=== PATIENT | female | born 1940 | race Caucasian/White ===

== ENCOUNTER 2019-02-28 13:51 | Inpatient (IN) ==
[2019-02-28] MEDS ORDERED: Naloxone 0.4 MG/ML INJ IVP PRN (16:18)
[2019-02-28] MEDS: Insulin LISPRO 300 UNITS/3 ML VIAL SQ SCH (19:24)
[2019-02-28] MEDS ORDERED: 0.9 % Sodium Chloride 250 ML ONE (20:40)
[2019-02-28] MEDS ORDERED: Acetaminophen IV 500 MG/50 ML INFUS..BTL IVPB ONE (21:08)
[2019-02-28] MEDS ORDERED: Haloperidol Lactate 5 MG/ML VIAL IVP ONE (22:03)
[2019-02-28] MEDS ORDERED: *HR* Promethazine 25 MG/ML VIAL IVP ONE (22:03)
[2019-03-01] MEDS: Insulin LISPRO 300 UNITS/3 ML VIAL SQ SCH ×4 (00:11→17:41)
[2019-03-01] MEDS ORDERED: D5% in Water 1,000 ML IVC PRN (06:31)
[2019-03-01] MEDS ORDERED: Dextrose Gel 15 GM/37.5 ML TUBE PO PRN ×2 (06:31)
[2019-03-01 06:39] LABS: Albumin 3.2 g/dL (3.5-5.7); Albumin/Globulin Ratio 1.1 (1.1-2.2); Bilirubin,Total 0.3 mg/dL (0.3-1.0); Calcium 8.7 mg/dL (8.6-10.3); Magnesium 2.2 mg/dL (1.6-2.6); Phosphorous 7.3 mg/dL (2.7-4.5); Potassium 4.9 mEq/L (3.5-5.1); Total Protein 6.2 g/dL (6.4-8.9)
[2019-03-01] MEDS: *HR* Dextrose 50 % in Water (Syg) 50 ML SYRINGE IVP PRN ×2 (06:50→13:06)
[2019-03-01 08:35] LABS: Estimated Average Glucose 114 mg/dl
[2019-03-01] MEDS: cefTRIAXone 1,000 MG in Water for inj. (sterile) 10 ML IVP SCH (09:12)
[2019-03-01] MEDS: Furosemide 20 MG/2 ML VIAL IVP PRN ×2 (09:26→15:48)
[2019-03-01] MEDS ORDERED: 0.9 % Sodium Chloride 250 ML ONE (11:27)
[2019-03-01] MEDS: Levothyroxine Sodium 100 MCG VIAL IVP SCH (13:05)
[2019-03-01] MEDS ORDERED: D5% in 0.9% NACL 1,000 ML IVC SCH (14:00)
[2019-03-01] MEDS ORDERED: 0.9 % Sodium Chloride 250 ML IVC PRN (14:51)
[2019-03-01] MEDS ORDERED: 0.9 % Sodium Chloride 1,000 ML PRIME SCH (15:00)
[2019-03-01 16:48] LABS: Hematocrit 33.6 % (35.3-44.9); Hemoglobin 11.1 g/dL (11.5-15.4)
[2019-03-01 17:28] LABS: Hepatitis B Surface Antibody < 3.10 mIU/mL
[2019-03-01 17:39] LABS: Hepatitis B Surface Antigen Nonreactive (Nonreactive)
[2019-03-01] MEDS ORDERED: *HR* Labetalol 20 MG/4 ML SYRINGE IVP ONE (19:55)
[2019-03-02] MEDS: Insulin LISPRO 300 UNITS/3 ML VIAL SQ SCH ×5 (00:29→22:53)
[2019-03-02 05:05] LABS: Basophils # 0.1 K/mcL (0.0-0.2); Basophils % 0.6 %; Eosinophils % 0.5 %; Hematocrit 29.6 % (35.3-44.9); Hemoglobin 9.4 g/dL (11.5-15.4); Immature Granulocytes % 0.3 % (0-4); Lymphocytes % 12.3 %; Mean Corpuscular HGB Conc 31.8 g/dL (31.6-35.5); Mean Corpuscular Hemoglobin 29.7 pg (28.0-33.3); Mean Corpuscular Volume 93.7 fL (83.0-100.0); Mean Platelet Volume 8.7 fL (9.4-12.4); Monocytes # 0.9 K/mcL (0.0-1.3); Monocytes % 11.5 %; Platelet Count 184 K/mcL (140-400); Red Blood Count 3.16 M/mcL (3.82-4.97); Red Cell Distribution Width 17.1 % (11.5-14.5); Segmented Neutrophils % 74.8 %
[2019-03-02 05:22] LABS: Calcium 8.5 mg/dL (8.6-10.3); Potassium 4.3 mEq/L (3.5-5.1)
[2019-03-02] MEDS ORDERED: 0.9 % Sodium Chloride 250 ML IVC PRN (09:18)
[2019-03-02] MEDS ORDERED: *HR* Heparin 10,000 UNIT/10 ML VIAL IV PRN (09:18)
[2019-03-02] MEDS: Levothyroxine Sodium 100 MCG VIAL IVP SCH (09:24)
[2019-03-02] MEDS: cefTRIAXone 1,000 MG in Water for inj. (sterile) 10 ML IVP SCH (09:24)
[2019-03-02] MEDS: *HR* OxyCODONE Oral Soln 5 MG/5 ML UD.LIQ PO PRN ×2 (12:07→19:23)
[2019-03-02] MEDS ORDERED: Heparin 1,000 UNITS/500 mL 500 ML ONE (13:04)
[2019-03-02] MEDS ORDERED: 0.9 % Sodium Chloride 500 ML ONE (13:04)
[2019-03-02] MEDS: NIFEdipine XL (24 HR) 30 MG TAB.ER.24 PO SCH (14:00)
[2019-03-02] MEDS ORDERED: *HR* Heparin 5,000 UNIT/ML VIAL ONE (15:00)
[2019-03-02] MEDS ORDERED: Haloperidol Lactate 5 MG/ML VIAL IVP ONE (19:59)
[2019-03-02] MEDS ORDERED: traZODone 50 MG TABLET PO SCH (21:00)
[2019-03-03] MEDS: Insulin LISPRO 300 UNITS/3 ML VIAL SQ SCH ×4 (06:02→23:55)
[2019-03-03 06:27] LABS: Basophils # 0.1 K/mcL (0.0-0.2); Basophils % 0.5 %; Eosinophils % 0.2 %; Hematocrit 29.1 % (35.3-44.9); Hemoglobin 9.6 g/dL (11.5-15.4); Immature Granulocytes % 0.3 % (0-4); Lymphocytes # 0.9 K/mcL (0.6-4.6); Lymphocytes % 9.4 %; Mean Corpuscular Hemoglobin 30.1 pg (28.0-33.3); Mean Corpuscular Volume 91.2 fL (83.0-100.0); Mean Platelet Volume 9.1 fL (9.4-12.4); Monocytes % 10.2 %; Neutrophils # 7.7 K/mcL (1.6-8.9); Platelet Count 200 K/mcL (140-400); Red Blood Count 3.19 M/mcL (3.82-4.97); Red Cell Distribution Width 16.6 % (11.5-14.5); Segmented Neutrophils % 79.4 %; White Blood Count 9.7 K/mcL (4.3-11.1)
[2019-03-03 06:52] LABS: Calcium 8.6 mg/dL (8.6-10.3); Potassium 4.4 mEq/L (3.5-5.1)
[2019-03-03] MEDS: NIFEdipine XL (24 HR) 30 MG TAB.ER.24 PO SCH (08:22)
[2019-03-03] MEDS: *HR* OxyCODONE Oral Soln 5 MG/5 ML UD.LIQ PO PRN (08:22)
[2019-03-03] MEDS: Levothyroxine Sodium 100 MCG VIAL IVP SCH (08:22)
[2019-03-03] MEDS: cefTRIAXone 1,000 MG in Water for inj. (sterile) 10 ML IVP SCH (08:23)
[2019-03-03] MEDS ORDERED: Lidocaine -MPF 2% 2 ML VIAL ONE (13:19)
[2019-03-03] MEDS ORDERED: *HR* Propofol 200 MG/20 ML VIAL IVP ONE (13:19)
[2019-03-03] MEDS ORDERED: *HR* FentaNYL (PF) 100 MCG/2 ML VIAL ONE (13:19)
[2019-03-03] MEDS ORDERED: ceFAZolin 1,000 MG in Water for inj. (sterile) 10 ML IVP ONE (14:00)
[2019-03-03] MEDS ORDERED: *HR* PHENYLEPHRINE 1,000 MCG/10 ML SYRINGE IVP ONE (14:08)
[2019-03-03] MEDS ORDERED: Naloxone 0.4 MG/ML INJ IVP PRN (15:27)
[2019-03-03] MEDS ORDERED: D5% in Water 1,000 ML IVC PRN (15:27)
[2019-03-03] MEDS ORDERED: Dextrose Gel 15 GM/37.5 ML TUBE PO PRN ×2 (15:27)
[2019-03-03] MEDS ORDERED: 0.9 % Sodium Chloride 1,000 ML PRIME SCH (15:27)
[2019-03-03] MEDS ORDERED: 0.9 % Sodium Chloride 250 ML IVC PRN (15:27)
[2019-03-03] MEDS: *HR* Heparin 5,000 UNIT/ML VIAL SQ SCH (17:31)
[2019-03-03] MEDS ORDERED: *HR* Heparin 5,000 UNIT/ML VIAL SQ SCH (18:00)
[2019-03-03] MEDS: traZODone 50 MG TABLET PO SCH (20:23)
[2019-03-04 04:40] LABS: Basophils % 0.1 %; Eosinophils % 0.1 %; Hematocrit 28.3 % (35.3-44.9); Hemoglobin 9.5 g/dL (11.5-15.4); Immature Granulocytes % 0.5 % (0-4); Lymphocytes # 0.8 K/mcL (0.6-4.6); Lymphocytes % 9.6 %; Mean Corpuscular HGB Conc 33.6 g/dL (31.6-35.5); Mean Corpuscular Hemoglobin 29.9 pg (28.0-33.3); Mean Platelet Volume 9.7 fL (9.4-12.4); Monocytes # 0.9 K/mcL (0.0-1.3); Monocytes % 10.8 %; Neutrophils # 6.6 K/mcL (1.6-8.9); Platelet Count 220 K/mcL (140-400); Red Blood Count 3.18 M/mcL (3.82-4.97); Red Cell Distribution Width 16.2 % (11.5-14.5); Segmented Neutrophils % 78.9 %; White Blood Count 8.4 K/mcL (4.3-11.1)
[2019-03-04 05:04] LABS: Potassium 4.4 mEq/L (3.5-5.1)
[2019-03-04] MEDS: *HR* Heparin 5,000 UNIT/ML VIAL SQ SCH ×2 (05:26→18:03)
[2019-03-04] MEDS: Insulin LISPRO 300 UNITS/3 ML VIAL SQ SCH ×3 (05:26→18:44)
[2019-03-04] MEDS ORDERED: *HR* Heparin 10,000 UNIT/10 ML VIAL IV PRN ×2 (07:41)
[2019-03-04] MEDS ORDERED: 0.9 % Sodium Chloride 250 ML IVC PRN (07:41)
[2019-03-04] MEDS ORDERED: 0.9 % Sodium Chloride 1,000 ML PRIME SCH (07:45)
[2019-03-04] MEDS: *HR* OxyCODONE Oral Soln 5 MG/5 ML UD.LIQ PO PRN (08:08)
[2019-03-04] MEDS: cefTRIAXone 1,000 MG in Water for inj. (sterile) 10 ML IVP SCH (08:09)
[2019-03-04] MEDS: Levothyroxine Sodium 100 MCG VIAL IVP SCH (08:10)
[2019-03-04] MEDS: NIFEdipine XL (24 HR) 30 MG TAB.ER.24 PO SCH (08:10)
[2019-03-04] MEDS: traZODone 50 MG TABLET PO SCH (20:15)
[2019-03-05] MEDS: Insulin LISPRO 300 UNITS/3 ML VIAL SQ SCH ×5 (00:33→23:52)
[2019-03-05 06:03] LABS: INR 1.1; Prothrombin Time 12.7 Seconds (9.4-12.1)
[2019-03-05] MEDS: *HR* Heparin 5,000 UNIT/ML VIAL SQ SCH ×2 (06:14→18:33)
[2019-03-05 07:18] LABS: Basophils % 0.2 %; Eosinophils # 0.1 K/mcL (0.0-0.6); Hemoglobin 8.6 g/dL (11.5-15.4); Immature Granulocytes % 0.2 % (0-4); Lymphocytes # 0.5 K/mcL (0.6-4.6); Lymphocytes % 7.1 %; Mean Corpuscular HGB Conc 34.4 g/dL (31.6-35.5); Mean Corpuscular Volume 87.1 fL (83.0-100.0); Mean Platelet Volume 9.1 fL (9.4-12.4); Monocytes # 0.7 K/mcL (0.0-1.3); Monocytes % 10.3 %; Neutrophils # 5.1 K/mcL (1.6-8.9); Platelet Count 199 K/mcL (140-400); Red Blood Count 2.87 M/mcL (3.82-4.97); Red Cell Distribution Width 15.7 % (11.5-14.5); Segmented Neutrophils % 81.2 %; White Blood Count 6.3 K/mcL (4.3-11.1)
[2019-03-05 07:39] LABS: Calcium 8.8 mg/dL (8.6-10.3)
[2019-03-05] MEDS ORDERED: Heparin 1,000 UNITS/500 mL 500 ML ONE (10:02)
[2019-03-05] MEDS ORDERED: *HR* Heparin 5,000 UNIT/ML VIAL ONE (10:43)
[2019-03-05] MEDS: NIFEdipine XL (24 HR) 30 MG TAB.ER.24 PO SCH (11:23)
[2019-03-05] MEDS: cefTRIAXone 1,000 MG in Water for inj. (sterile) 10 ML IVP SCH (11:34)
[2019-03-05] MEDS: Levothyroxine Sodium 100 MCG VIAL IVP SCH (11:36)
[2019-03-05] MEDS: *HR* OxyCODONE Oral Soln 5 MG/5 ML UD.LIQ PO PRN (16:16)
[2019-03-05] MEDS: traZODone 50 MG TABLET PO SCH (21:15)
[2019-03-06] MEDS: *HR* OxyCODONE Oral Soln 5 MG/5 ML UD.LIQ PO PRN ×2 (05:50→22:36)
[2019-03-06] MEDS: Insulin LISPRO 300 UNITS/3 ML VIAL SQ SCH ×3 (05:50→17:17)
[2019-03-06] MEDS: *HR* Heparin 5,000 UNIT/ML VIAL SQ SCH ×2 (05:50→17:04)
[2019-03-06 05:57] LABS: Basophils % 0.3 %; Eosinophils # 0.1 K/mcL (0.0-0.6); Eosinophils % 1.5 %; Hematocrit 27.2 % (35.3-44.9); Hemoglobin 9.2 g/dL (11.5-15.4); Immature Granulocytes % 0.5 % (0-4); Lymphocytes # 0.8 K/mcL (0.6-4.6); Lymphocytes % 10.3 %; Mean Corpuscular HGB Conc 33.8 g/dL (31.6-35.5); Mean Corpuscular Hemoglobin 29.6 pg (28.0-33.3); Mean Corpuscular Volume 87.5 fL (83.0-100.0); Mean Platelet Volume 9.2 fL (9.4-12.4); Monocytes # 0.8 K/mcL (0.0-1.3); Monocytes % 10.1 %; Neutrophils # 5.7 K/mcL (1.6-8.9); Platelet Count 229 K/mcL (140-400); Red Blood Count 3.11 M/mcL (3.82-4.97); Red Cell Distribution Width 15.4 % (11.5-14.5); Segmented Neutrophils % 77.3 %; White Blood Count 7.4 K/mcL (4.3-11.1)
[2019-03-06 06:20] LABS: Calcium 9.1 mg/dL (8.6-10.3)
[2019-03-06] MEDS ORDERED: 0.9 % Sodium Chloride 250 ML IVC PRN (08:32)
[2019-03-06] MEDS ORDERED: *HR* Heparin 10,000 UNIT/10 ML VIAL IV PRN (08:32)
[2019-03-06] MEDS: Levothyroxine Sodium 100 MCG VIAL IVP SCH (08:53)
[2019-03-06] MEDS: NIFEdipine XL (24 HR) 30 MG TAB.ER.24 PO SCH (08:53)
[2019-03-06] MEDS: cefTRIAXone 1,000 MG in Water for inj. (sterile) 10 ML IVP SCH (08:54)
[2019-03-07] MEDS: Insulin LISPRO 300 UNITS/3 ML VIAL SQ SCH ×4 (00:05→17:38)
[2019-03-07] MEDS: traZODone 50 MG TABLET PO SCH ×2 (00:05→20:19)
[2019-03-07 06:43] LABS: Calcium 8.1 mg/dL (8.6-10.3); Potassium 4.8 mEq/L (3.5-5.1)
[2019-03-07] MEDS: *HR* Heparin 5,000 UNIT/ML VIAL SQ SCH ×2 (07:27→17:32)
[2019-03-07] MEDS: cefTRIAXone 1,000 MG in Water for inj. (sterile) 10 ML IVP SCH (08:50)
[2019-03-07] MEDS: NIFEdipine XL (24 HR) 30 MG TAB.ER.24 PO SCH (08:50)
[2019-03-07] MEDS: Levothyroxine Sodium 100 MCG VIAL IVP SCH (08:51)
[2019-03-07 09:08] LABS: Hematocrit 27.9 % (35.3-44.9); Mean Corpuscular HGB Conc 32.3 g/dL (31.6-35.5); Mean Corpuscular Hemoglobin 29.6 pg (28.0-33.3); Mean Corpuscular Volume 91.8 fL (83.0-100.0); Mean Platelet Volume 9.6 fL (9.4-12.4); Platelet Count 206 K/mcL (140-400); Red Blood Count 3.04 M/mcL (3.82-4.97); Red Cell Distribution Width 15.3 % (11.5-14.5); White Blood Count 6.9 K/mcL (4.3-11.1)
[2019-03-07] MEDS ORDERED: Ondansetron 4 MG/2 ML VIAL IVP PRN (09:31)
[2019-03-07] MEDS: *HR* OxyCODONE Oral Soln 5 MG/5 ML UD.LIQ PO PRN ×2 (11:40→17:44)
[2019-03-07] MEDS ORDERED: D5% in Water 1,000 ML IVC PRN (13:11)
[2019-03-07] MEDS: *HR* Dextrose 50 % in Water (Syg) 50 ML SYRINGE IVP PRN (13:20)
[2019-03-07] MEDS: Milk and Molasses Enema 200 ML RC SCH (15:19)
[2019-03-08] MEDS: Insulin LISPRO 300 UNITS/3 ML VIAL SQ SCH ×5 (00:05→23:57)
[2019-03-08 01:42] LABS: Hematocrit 23.4 % (35.3-44.9); Hemoglobin 7.7 g/dL (11.5-15.4); Mean Corpuscular HGB Conc 32.9 g/dL (31.6-35.5); Mean Corpuscular Hemoglobin 29.8 pg (28.0-33.3); Mean Corpuscular Volume 90.7 fL (83.0-100.0); Mean Platelet Volume 10.5 fL (9.4-12.4); Platelet Count 153 K/mcL (140-400); Red Blood Count 2.58 M/mcL (3.82-4.97); Red Cell Distribution Width 15.7 % (11.5-14.5); White Blood Count 5.3 K/mcL (4.3-11.1)
[2019-03-08 02:05] LABS: Calcium 8.1 mg/dL (8.6-10.3); Potassium 3.6 mEq/L (3.5-5.1)
[2019-03-08] MEDS: *HR* Heparin 5,000 UNIT/ML VIAL SQ SCH ×2 (06:55→17:00)
[2019-03-08] MEDS ORDERED: 0.9 % Sodium Chloride 250 ML IVC PRN (09:12)
[2019-03-08] MEDS ORDERED: *HR* Heparin 10,000 UNIT/10 ML VIAL IV PRN (09:12)
[2019-03-08] MEDS ORDERED: 0.9 % Sodium Chloride 1,000 ML PRIME SCH (09:15)
[2019-03-08] MEDS: NIFEdipine XL (24 HR) 30 MG TAB.ER.24 PO SCH (09:50)
[2019-03-08] MEDS: Milk and Molasses Enema 200 ML RC SCH (15:51)
[2019-03-08] MEDS: cefTRIAXone 1,000 MG in Water for inj. (sterile) 10 ML IVP SCH (15:59)
[2019-03-08] MEDS: Levothyroxine Sodium 100 MCG VIAL IVP SCH (16:00)
[2019-03-08 17:01] LABS: Amylase,Pleural Fluid 25 Units/L (No Ref Range); Glucose,Pleural Fluid 88 mg/dL (No Ref Range); LDH,Pleural Fluid 86 Units/L (No Ref Range); RBC,Pleural Fluid < 0.002 M/mcL; Total Protein,Pleural Fluid < 3.0 g/dL
[2019-03-08] MEDS: *HR* OxyCODONE Oral Soln 5 MG/5 ML UD.LIQ PO PRN (18:09)
[2019-03-08 19:11] LABS: Appearance of Pleural Fl Clear (Clear)
[2019-03-08 19:36] LABS: Basophils,Pleural Fluid 0 %; Eosinophils,Pleural Fluid 0 %
[2019-03-08] MEDS: traZODone 50 MG TABLET PO SCH (20:43)
[2019-03-09] MEDS: *HR* OxyCODONE Oral Soln 5 MG/5 ML UD.LIQ PO PRN (01:09)
[2019-03-09 04:11] LABS: Basophils % 0.1 %; Eosinophils # 0.1 K/mcL (0.0-0.6); Eosinophils % 0.9 %; Hematocrit 26.5 % (35.3-44.9); Hemoglobin 8.7 g/dL (11.5-15.4); Immature Granulocytes % 0.6 % (0-4); Lymphocytes # 0.7 K/mcL (0.6-4.6); Lymphocytes % 10.7 %; Mean Corpuscular HGB Conc 32.8 g/dL (31.6-35.5); Mean Corpuscular Hemoglobin 29.7 pg (28.0-33.3); Mean Corpuscular Volume 90.4 fL (83.0-100.0); Mean Platelet Volume 9.4 fL (9.4-12.4); Monocytes # 0.6 K/mcL (0.0-1.3); Monocytes % 8.4 %; Neutrophils # 5.4 K/mcL (1.6-8.9); Platelet Count 196 K/mcL (140-400); Red Blood Count 2.93 M/mcL (3.82-4.97); Red Cell Distribution Width 15.4 % (11.5-14.5); Segmented Neutrophils % 79.3 %; White Blood Count 6.8 K/mcL (4.3-11.1)
[2019-03-09 04:37] LABS: Calcium 8.6 mg/dL (8.6-10.3); Phosphorous 3.4 mg/dL (2.7-4.5); Potassium 3.6 mEq/L (3.5-5.1)
[2019-03-09] MEDS: Insulin LISPRO 300 UNITS/3 ML VIAL SQ SCH (05:40)
[2019-03-09] MEDS: *HR* Heparin 5,000 UNIT/ML VIAL SQ SCH ×2 (05:40→18:27)
[2019-03-09] MEDS: *HR* Dextrose 50 % in Water (Syg) 50 ML SYRINGE IVP PRN (06:02)
[2019-03-09] MEDS: cefTRIAXone 1,000 MG in Water for inj. (sterile) 10 ML IVP SCH (10:09)
[2019-03-09] MEDS: Haloperidol Lactate 5 MG/ML VIAL IVP PRN ×2 (13:05→21:03)
[2019-03-09] MEDS: Milk and Molasses Enema 200 ML RC SCH (17:23)
[2019-03-09] MEDS: traZODone 50 MG TABLET PO SCH (22:20)
[2019-03-10 04:47] LABS: Basophils % 0.3 %; Eosinophils # 0.2 K/mcL (0.0-0.6); Hematocrit 27.4 % (35.3-44.9); Hemoglobin 8.8 g/dL (11.5-15.4); Immature Granulocytes % 0.6 % (0-4); Lymphocytes % 13.4 %; Mean Corpuscular HGB Conc 32.1 g/dL (31.6-35.5); Mean Corpuscular Hemoglobin 29.4 pg (28.0-33.3); Mean Corpuscular Volume 91.6 fL (83.0-100.0); Mean Platelet Volume 9.8 fL (9.4-12.4); Monocytes # 0.7 K/mcL (0.0-1.3); Monocytes % 10.4 %; Neutrophils # 5.2 K/mcL (1.6-8.9); Platelet Count 248 K/mcL (140-400); Red Blood Count 2.99 M/mcL (3.82-4.97); Red Cell Distribution Width 15.8 % (11.5-14.5); Segmented Neutrophils % 72.3 %; White Blood Count 7.1 K/mcL (4.3-11.1)
[2019-03-10 05:05] LABS: Calcium 8.9 mg/dL (8.6-10.3); Magnesium 2.1 mg/dL (1.6-2.6); Phosphorous 3.6 mg/dL (2.7-4.5); Potassium 3.6 mEq/L (3.5-5.1)
[2019-03-10] MEDS: *HR* Heparin 5,000 UNIT/ML VIAL SQ SCH (06:09)
[2019-03-10] MEDS ORDERED: *HR* Heparin 10,000 UNIT/10 ML VIAL IV PRN (06:16)
[2019-03-10] MEDS ORDERED: 0.9 % Sodium Chloride 250 ML IVC PRN (06:16)
[2019-03-10] MEDS ORDERED: 0.9 % Sodium Chloride 1,000 ML PRIME SCH (06:30)
[2019-03-10 12:43] VITALS: BP 132/65
== END 2019-03-10 16:10 | disposition home or self-care (01) | DRG 480 ==
LOC: 3NENU → SUATTDRO 15:20 → 3NENU 03-03 00:07
PROVIDERS: ADMIT Internal Medicine; ATTEND Internal Medicine

== ENCOUNTER 2019-04-01 17:30 | Inpatient (IN) ==
[2019-04-01] MEDS ORDERED: *HR* Metoprolol 5 MG/5 ML VIAL IVP ONE (21:04)
[2019-04-01] MEDS ORDERED: Isovue-370 500 ML BOTTLE IVP ONE (21:37)
[2019-04-01] MEDS: Vasopressin 40 UNIT in D5% in Water 100 ML IVC SCH (21:38)
[2019-04-01] MEDS: Norepinephrine 8 MG in 0.9 % Sodium Chloride 250 ML IVC SCH (21:38)
[2019-04-01] MEDS ORDERED: Ondansetron 4 MG/2 ML VIAL IVP PRN (21:39)
[2019-04-01] MEDS ORDERED: Acetaminophen 325 MG TABLET PO PRN (21:39)
[2019-04-01] MEDS ORDERED: Ketorolac 30 MG/ML VIAL IVP ONE (22:07)
[2019-04-01 22:48] LABS: VBG HCO3 14 mEq/L (21-27); VBG PCO2 32 mmHg (41-51); VBG PH 7.24 pH Units (7.32-7.42); VBG PO2 170 mmHg (25-50)
[2019-04-01] MEDS: Hydrocortisone Sodium Succ 100 MG/2 ML VIAL IVP SCH (22:55)
[2019-04-01] MEDS: Albumin 25% 25gram/100mL 25 GM/100 ML IV.SOLN IVPB SCH (22:55)
[2019-04-01 23:03] LABS: INR 3.6; Prothrombin Time 40.9 Seconds (9.4-12.1)
[2019-04-01 23:05] LABS: Activated Partial Thrombo Time 38.3 Seconds (26.0-36.0)
[2019-04-01] MEDS: Piperacillin/Tazobactam 3.375 GM in 0.9 % Sodium Chloride Mini Bag 100 ML IVPB SCH (23:07)
[2019-04-02] MEDS ORDERED: *HR* Heparin 5,000 UNIT/ML VIAL SQ SCH
[2019-04-02 00:17] LABS: Nucleated Red Blood Cells 0.1 /100 WBC (0)
[2019-04-02 00:19] LABS: Hematocrit 25.7 % (35.3-44.9); Hemoglobin 8.4 g/dL (11.5-15.4); Mean Corpuscular HGB Conc 32.7 g/dL (31.6-35.5); Mean Corpuscular Hemoglobin 30.1 pg (28.0-33.3); Mean Corpuscular Volume 92.1 fL (83.0-100.0); Mean Platelet Volume 11.5 fL (9.4-12.4); Platelet Count 106 K/mcL (140-400); Red Blood Count 2.79 M/mcL (3.82-4.97); Red Cell Distribution Width 18.6 % (11.5-14.5)
[2019-04-02 00:23] LABS: White Blood Count 34.7 K/mcL (4.3-11.1)
[2019-04-02 00:39] LABS: Albumin 2.5 g/dL (3.5-5.7); Albumin/Globulin Ratio 1.1 (1.1-2.2); Bilirubin,Direct 0.3 mg/dL (0.0-0.2); Bilirubin,Indirect 0.4 mg/dL (0.0-1.0); Bilirubin,Total 0.7 mg/dL (0.3-1.0); Calcium 8.1 mg/dL (8.6-10.3); Globulin 2.2 g/dL (2.4-3.5); Magnesium 1.9 mg/dL (1.6-2.6); Phosphorous 4.3 mg/dL (2.7-4.5); Potassium 3.7 mEq/L (3.5-5.1); Total Protein 4.7 g/dL (6.4-8.9); Troponin I 1.89 ng/mL (< 0.04)
[2019-04-02 00:44] LABS: Large Platelets Present (Not Present); Lymphocytes # 0.7 K/mcL (0.6-4.6); Monocytes # 4.2 K/mcL (0.0-1.3); Neutrophils # 29.8 K/mcL (1.6-8.9); Platelet Estimate Decreased (Normal)
[2019-04-02 00:45] LABS: Anisocytosis 1+ (Not Present); Polychromasia 1+ (Not Present)
[2019-04-02 00:46] LABS: Acanthocytes 1+ (Not Present)
[2019-04-02] MEDS: Albumin 25% 25gram/100mL 25 GM/100 ML IV.SOLN IVPB SCH (01:56)
[2019-04-02] MEDS: Norepinephrine 8 MG in 0.9 % Sodium Chloride 250 ML IVC SCH ×4 (01:57→21:14)
[2019-04-02] MEDS ORDERED: *HR* Heparin 5,000 UNIT/ML VIAL ONE (02:03)
[2019-04-02] MEDS: Hydrocortisone Sodium Succ 100 MG/2 ML VIAL IVP SCH ×3 (05:42→18:42)
[2019-04-02] MEDS ORDERED: *HR* Heparin 5,000 UNIT/ML VIAL HE PRN (06:00)
[2019-04-02 08:32] LABS: Enterococcus by PCR Not Detected (Not Detect); Staphylococcus aureus by PCR DETECTED (Not Detect); mecA Methicillin-Resist Gene DETECTED (Not Detect)
[2019-04-02 08:33] LABS: Acinetobacter baumannii by PCR Not Detected (Not Detect); Candida albicans by PCR Not Detected (Not Detect); Candida glabrata by PCR Not Detected (Not Detect); Candida krusei by PCR Not Detected (Not Detect); Candida parapsilosis by PCR Not Detected (Not Detect); Candida tropicalis by PCR Not Detected (Not Detect); Enterobacter cloacae Cmplx PCR Not Detected (Not Detect); Enterobacteriaceae by PCR Not Detected (Not Detect); Escherichia coli by PCR Not Detected (Not Detect); Klebsiella oxytoca by PCR Not Detected (Not Detect); Klebsiella pneumoniae by PCR Not Detected (Not Detect); Proteus by PCR Not Detected (Not Detect); Pseudomonas aeruginosa by PCR Not Detected (Not Detect); Serratia marcescens by PCR Not Detected (Not Detect); Streptococcus agalactiae(B)PCR Not Detected (Not Detect); Streptococcus by PCR Not Detected (Not Detect); Streptococcus pneumoniae PCR Not Detected (Not Detect); Streptococcus pyogenes (A) PCR Not Detected (Not Detect)
[2019-04-02] MEDS: Phenylephrine 10 MG in 0.9 % Sodium Chloride 250 ML IVC SCH ×3 (10:55→15:50)
[2019-04-02] MEDS ORDERED: *HR* Heparin 10,000 UNIT/10 ML VIAL IV PRN ×3 (12:26→18:00)
[2019-04-02 12:43] LABS: ABG Base Excess -11 mEq/L (-2 to 3); ABG HCO3 15 mEq/L (21-27); ABG Oxygen Saturation 95 % (95-98); ABG PCO2 32 mmHg (35-45); ABG PH 7.28 pH Units (7.32-7.45); ABG PO2 85 mmHg (85-104); ABG TCO2 16 mEq/L (20-26)
[2019-04-02] MEDS: Piperacillin/Tazobactam 3.375 GM in 0.9 % Sodium Chloride Mini Bag 100 ML IVPB SCH (13:30)
[2019-04-02] MEDS ORDERED: 0.9 % Sodium Chloride 250 ML ONE (14:46)
[2019-04-02] MEDS: Phenylephrine 20 MG in 0.9 % Sodium Chloride 250 ML IVC SCH ×2 (16:53→21:14)
[2019-04-02] MEDS ORDERED: *HR* Etomidate 20 MG/10 ML AMPUL IVP ONE (17:09)
[2019-04-02] MEDS ORDERED: *HR* Midazolam HCl 5 MG/5 ML VIAL IVP ONE (17:09)
[2019-04-02] MEDS: Vasopressin 40 UNIT in D5% in Water 100 ML IVC SCH (17:39)
[2019-04-02 23:31] LABS: ABG Base Excess -11 mEq/L (-2 to 3); ABG HCO3 16 mEq/L (21-27); ABG Oxygen Saturation 80 % (95-98); ABG PCO2 45 mmHg (35-45); ABG PH 7.17 pH Units (7.32-7.45); ABG PO2 56 mmHg (85-104); ABG TCO2 18 mEq/L (20-26)
[2019-04-02] MEDS ORDERED: Artificial Tears SOLN 15 ML BOTTLE BOTH EYES PRN (23:57)
[2019-04-03] MEDS ORDERED: FentaNYL (PF) 1,000 MCG in 0.9 % Sodium Chloride 80 ML IVC SCH (00:15)
[2019-04-03] MEDS: Phenylephrine 20 MG in 0.9 % Sodium Chloride 250 ML IVC SCH ×5 (00:45→09:15)
[2019-04-03] MEDS: Artificial Tears SOLN 15 ML BOTTLE BOTH EYES SCH ×4 (00:45→12:56)
[2019-04-03] MEDS: Hydrocortisone Sodium Succ 100 MG/2 ML VIAL IVP SCH ×3 (00:46→12:56)
[2019-04-03] MEDS: Piperacillin/Tazobactam 3.375 GM in 0.9 % Sodium Chloride Mini Bag 100 ML IVPB SCH ×2 (00:46→12:56)
[2019-04-03] MEDS: Norepinephrine 8 MG in 0.9 % Sodium Chloride 250 ML IVC SCH ×4 (02:24→14:45)
[2019-04-03 03:44] LABS: Immature Granulocytes % 2.4 % (0-4); Lymphocytes % 1.3 %
[2019-04-03 03:45] LABS: Nucleated Red Blood Cells 0.3 /100 WBC (0)
[2019-04-03 03:47] LABS: Basophils # 0.1 K/mcL (0.0-0.2); Basophils % 0.2 %; Hematocrit 23.4 % (35.3-44.9); Hemoglobin 7.6 g/dL (11.5-15.4); Lymphocytes # 0.3 K/mcL (0.6-4.6); Mean Corpuscular HGB Conc 32.5 g/dL (31.6-35.5); Mean Corpuscular Hemoglobin 30.6 pg (28.0-33.3); Mean Corpuscular Volume 94.4 fL (83.0-100.0); Mean Platelet Volume 11.7 fL (9.4-12.4); Monocytes # 0.4 K/mcL (0.0-1.3); Monocytes % 1.7 %; Neutrophils # 23.2 K/mcL (1.6-8.9); Red Blood Count 2.48 M/mcL (3.82-4.97); Red Cell Distribution Width 18.7 % (11.5-14.5); Segmented Neutrophils % 94.4 %; White Blood Count 24.6 K/mcL (4.3-11.1)
[2019-04-03 03:49] LABS: Calcium 8.3 mg/dL (8.6-10.3); Potassium 4.1 mEq/L (3.5-5.1)
[2019-04-03 03:54] LABS: Platelet Count 91 K/mcL (140-400)
[2019-04-03 04:03] LABS: Troponin I 1.99 ng/mL (< 0.04)
[2019-04-03 04:06] LABS: INR 1.5; Prothrombin Time 16.7 Seconds (9.4-12.1)
[2019-04-03 04:24] LABS: Anisocytosis 1+ (Not Present); Microcytosis Present (Not Present); Platelet Estimate Slight Decrease (Normal); Poikilocytosis 1+ (Not Present)
[2019-04-03] MEDS ORDERED: 0.9 % Sodium Chloride 250 ML IVC SCH (05:00)
[2019-04-03 05:27] LABS: ABG Base Excess -14 mEq/L (-2 to 3); ABG HCO3 13 mEq/L (21-27); ABG Oxygen Saturation 100 % (95-98); ABG PCO2 32 mmHg (35-45); ABG PH 7.21 pH Units (7.32-7.45); ABG PO2 328 mmHg (85-104); ABG TCO2 14 mEq/L (20-26); Blood Gas Modality ASSIST CONTROL; Blood Gas VT 450 cc
[2019-04-03] MEDS ORDERED: Sodium Bicarbonate 50 MEQ/50 ML VIAL IVP ONE (06:15)
[2019-04-03] MEDS ORDERED: Ringers Solution, Lactated 1,000 ML IVC ONE (08:33)
[2019-04-03] MEDS ORDERED: Chlorhexidine Rinse 15 ML MOUTHWASH MM SCH (09:00)
[2019-04-03] MEDS: Phenylephrine 50 MG in 0.9 % Sodium Chloride 250 ML IVC SCH ×2 (11:32→16:33)
[2019-04-03] MEDS ORDERED: Sodium Bicarbonate 150 MEQ in D5% in Water 1,000 ML IVC SCH (13:45)
[2019-04-03 15:20] LABS: ABG Base Excess -12 mEq/L (-2 to 3); ABG HCO3 14 mEq/L (21-27); ABG Oxygen Saturation 96 % (95-98); ABG PCO2 30 mmHg (35-45); ABG PH 7.28 pH Units (7.32-7.45); ABG PO2 87 mmHg (85-104); ABG TCO2 15 mEq/L (20-26); Blood Gas Modality AF; Blood Gas VT 450 cc
[2019-04-03 16:02] VITALS: BP 108/61
[2019-04-03] MEDS ORDERED: Aminoglycoside Consult 1 EACH MC ONE (17:09)
[2019-04-04 07:49] LABS: Acinetobacter baumannii by PCR Not Detected (Not Detect); Candida albicans by PCR Not Detected (Not Detect); Candida glabrata by PCR Not Detected (Not Detect); Candida krusei by PCR Not Detected (Not Detect); Candida parapsilosis by PCR Not Detected (Not Detect); Candida tropicalis by PCR Not Detected (Not Detect); Enterobacter cloacae Cmplx PCR Not Detected (Not Detect); Enterobacteriaceae by PCR Not Detected (Not Detect); Enterococcus by PCR Not Detected (Not Detect); Escherichia coli by PCR Not Detected (Not Detect); Klebsiella oxytoca by PCR Not Detected (Not Detect); Klebsiella pneumoniae by PCR Not Detected (Not Detect); Proteus by PCR Not Detected (Not Detect); Pseudomonas aeruginosa by PCR Not Detected (Not Detect); Serratia marcescens by PCR Not Detected (Not Detect); Staphylococcus aureus by PCR DETECTED (Not Detect); Streptococcus agalactiae(B)PCR Not Detected (Not Detect); Streptococcus by PCR Not Detected (Not Detect); Streptococcus pneumoniae PCR Not Detected (Not Detect); Streptococcus pyogenes (A) PCR Not Detected (Not Detect); mecA Methicillin-Resist Gene DETECTED (Not Detect)
[2019-04-06 05:46] LABS: Hepatitis B Surface Antibody 111.96 mIU/mL
[2019-04-06 05:58] LABS: Hepatitis B Surface Antigen Nonreactive (Nonreactive)
== END 2019-04-03 17:10 | disposition short-term general hospital (02) | DRG 871 ==
LOC: ICNU 19:53
PROVIDERS: ADMIT Pediatrics; ATTEND Pediatrics